=== PATIENT | male | born 1940 | race Caucasian/White ===

== ENCOUNTER → 2018-06-28 | Outpatient (CLI) | END | disposition home or self-care (01) ==

== ENCOUNTER 2019-01-03 08:41 | Emergency (ER) | payer MEDICARE, BC ==
[~2019-01-03] VITALS: Ht 180.3 cm; Wt 75.0 kg
[2019-01-03 08:48] VITALS: Ht 180.3 cm; Wt 75.0 kg
--- NOTE | 2019-01-03 10:27 | ERD ---
ER Documentation Chief Complaint Chief Complaint bleeding varicose vein on left ankle HPI This is a 78-year-old male with a history of chronic bilateral lower extremity venous stasis ulcers and varicose veins. He said he scratched his left lateral ankle this morning and it started bleeding at home. He wrapped it with an Trevor wrap and bandage and put pressure. The bleeding is currently stopped. ROS All systems reviewed and are negative except as per history of present illness. Allergies Allergies: Coded Allergies: No Known Allergy (Unverified , 11/13/12) PMhx/Soc History of Surgery: Yes (back surgery,left hip rotated cap,hernia repair) Anesthesia Reaction: No Hx Neurological Disorder: No Hx Respiratory Disorders: No Hx Cardiac Disorders: No Hx Psychiatric Problems: No Hx Miscellaneous Medical Probl: No Hx Alcohol Use: No Hx Substance Use: No Hx Tobacco Use: No Smoking Status: Never smoker FmHx Family History: No coronary disease Physical Exam Vitals Vital Signs Date Temp Pulse Resp B/P (MAP) Pulse Ox O2 O2 Flow FiO2 Time Delivery Rate 01/03/19 98.1 68 18 168/100 100 08:48 (122) Physical Exam Const: No acute distress Head: Atraumatic Eyes: Normal Conjunctiva ENT: Normal External Ears, Nose and Mouth. Neck: Full range of motion. No meningismus. Resp: Clear to auscultation bilaterally Cardio: Regular rate and rhythm, no murmurs Abd: Soft, non tender, non distended. Normal bowel sounds Skin: No petechiae or rashes Back: No midline or flank tenderness Ext: No cyanosis, or edema, bilateral venous stasis ulcers and varicosities with left lateral leg near the lateral malleolus superior to this is a area of bleeding which is now stopped Neur: Awake and alert Psych: Normal Mood and Affect Procedures/MDM Applied some Surgicel to the wound and redressed it Patient feels much better at this time, and vital signs are normal, symptoms have improved. I did give strict instructions to return to the ED if symptoms continue or worsen, patient will otherwise follow-up with primary care physician. Patient understood instructions and agreed to plan. Disclaimer: Inadvertent spelling and grammatical errors are likely due to EHR/dictation software use and do not reflect on the overall quality of patient care. Also, please note that the electronic time recorded on this note does not necessarily reflect the actual time of the patient encounter. Departure Diagnosis: Primary Impression: Venous stasis ulcer Venous stasis ulcer site: ankle Varicose vein presence: with varicose veins Laterality: left Non-pressure ulcer stage: unspecified non-pressure ulcer stage Qualified Codes: I83.023 - Varicose veins of left lower extremity with ulcer of ankle; L97.329 - Non-pressure chronic ulcer of left ankle with unspecified severity Additional Impression: Active bleeding Condition: Stable Patient Instructions: First Aid: Bleeding BARBARA STEVENSON DO Jan 03, 2019 10:27
[2019-01-03] MEDS ORDERED: PROG100C5 PO (10:46)
[2019-01-03] MEDS ORDERED: THYR32.58 ORAL (10:46)
[2019-01-03 10:52] VITALS: BP 142/82; PULSE 82; RESP 20
== END 2019-01-03 10:54 | disposition home or self-care (01) ==
LOC: E/R 08:41
DX: I83.023 Varicose veins of left lower extremity with ulcer of ankle (principal); L97.329 Non-pressure chronic ulcer of left ankle with unspecified severity
CPT/HCPCS: 99282